=== PATIENT | female | born 1955 | race Caucasian/White ===

== ENCOUNTER 2018-01-23 09:50 | Inpatient (IN) | payer OTHER ==
[~2018-01-23] VITALS: Ht 167.6 cm; Wt 79.4 kg
--- NOTE | 2018-01-23 09:56 | ED DYSPNEA/ASTHMA COMPLAINT ---
History of Present Illness General Chief Complaint: Dyspnea (COPD, CHF, Other) Stated Complaint: SOB, COUGH Source: patient, old records, EMS Exam Limitations: no limitations Vital Signs & Intake/Output Vital Signs & Intake/Output Vital Signs Date Time Temp Pulse Resp B/P B/P Pulse O2 O2 Flow FiO2 Mean Ox Delivery Rate 01/23 1525 98.3 57 18 110/60 91 Nasal 2.0L Cannula 01/23 1522 91 Nasal 2.0L Cannula 01/23 1410 98.5 61 22 104/62 94 Nasal 2.0L Cannula 01/23 1234 98.3 57 20 99/57 92 Nasal 2.0L Cannula 01/23 1111 96 Nasal 2.0L Cannula 01/23 1001 100.1 69 24 125/63 95 Nasal 2.0L Cannula Allergies Coded Allergies: NO KNOWN ALLERGIES (08/13/11) Reconcile Medications Amlodipine Besylate 10 MG TABLET 1 TAB PO DAILY HEART (Reported) Atenolol 25 MG TABLET 1 TAB PO DAILY HEART (Reported) Divalproex Sodium (Divalproex Sodium ER) 500 MG TAB.ER.24H 1 TAB PO QPM MENTAL HEALTH (Reported) Divalproex Sodium (Divalproex Sodium ER) 250 MG TAB.ER.24H 1 TAB PO QPM MENTAL HEALTH (Reported) Duloxetine HCl 60 MG CAPSULE.DR 2 CAP PO DAILY MENTAL HEALTH (Reported) Lamotrigine 200 MG TABLET 1 TAB PO DAILY MENTAL HEALTH (Reported) Levothyroxine Sodium 150 MCG TABLET 1 TAB PO DAILY AC THYROID (Reported) Losartan Potassium 25 MG TABLET 1 TAB PO DAILY HEART (Reported) Oxazepam 10 MG CAPSULE 1 TAB PO TIDPRN PRN MENTAL HEALTH (Reported) Trazodone HCl 100 MG TABLET 2 TAB PO QPM SLEEP (Reported) Triage Nurses Notes Reviewed? yes Onset: Gradual Duration: day(s): Timing: recent history Severity: moderate HPI: 62YO female with hx of COPD, HTN, CAD s/p AMI 2 years ago presents to ED complaining of worsening dyspnea x 6 days. Patient states that her neighbor has been ill with the flu and that everyone around has been getting sick. Patient reports headache, body aches, sore throat, malaise, cough productive of yellow sputum, dyspnea 6 days. Patient also reports right ear pain beginning yesterday. Patient reports vertigo sensation and equilibrium abnormality beginning today, worse with positional changes. Patient reports left-sided anterior chest pain this morning which was pleuritic and worse with cough however currently reports no significant chest pain. Patient denies abdominal pain, vomiting, diarrhea, urinary symptoms. (Lexi Godoy) Past History Travel History Traveled to [place] past 21 day No Medical History Any Pertinent Medical History? see below for history Respiratory: COPD Endocrine: hypothyroidism Surgical History Surgical History: non-contributory Psychosocial History Who do you live with Patient/Self Services at Home None What is your primary language Swiss Family History Hx Contributory? No (Lexi Godoy) Review of Systems Review of Systems Constitutional: Reports: no symptoms. EENTM: Reports: see HPI. Respiratory: Reports: see HPI. Cardiovascular: Reports: see HPI. GI: Reports: no symptoms. Genitourinary: Reports: no symptoms. Musculoskeletal: Reports: see HPI. Skin: Reports: no symptoms. Neurological/Psychological: Reports: see HPI. Hematologic/Endocrine: Reports: no symptoms. Immunologic/Allergic: Reports: no symptoms. All Other Systems: Reviewed and Negative (Lexi Godoy) Physical Exam Physical Exam General Appearance: well developed/nourished, no apparent distress, alert, awake Head: atraumatic, normal appearance Eyes: Bilateral: normal appearance, PERRL, EOMI. 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 Yes CVA/TIA Diagnosis No Sepsis Present: No Sepsis Focused Exam Completed? No (Lexi Godoy) Progress Differential Diagnosis: asthma, AMI, bronchitis, CHF, COPD, pericarditis, pulmonary embolism, pneumonia, pneumothorax, unstable angina Plan of Care: Orders Procedure Date/time Status Nothing by Mouth 01/24 B Active US-LIMITED ABDOMEN 01/24 700 Active CBC WITHOUT DIFFERENTIAL 01/24 600 Active BASIC ELECTROLYTES PLUS BUN&CR 01/24 600 Active Heart Healthy Diet 01/23 D Complete LOWER RESPIRATORY CULTURE 01/23 1538 Active Weight 01/23 1522 Active Teach/Educate 01/23 1522 Active Pain Treatment and Response 01/23 1522 Active Nutritional Intake, Monitor 01/23 1522 Active Isolation 01/23 1522 Active Patient Care Conference 01/23 1522 Active Activity/Ambulation 01/23 1522 Active Pathway - chart 01/23 1334 Active House Staff 01/23 1334 Active Patient Data 01/23 1334 Active Code Status 01/23 1334 Active Patient Data 01/23 1309 Active ED Holding Orders 01/23 1305 Active Admit to inpatient 01/23 1305 Active Vital Signs 01/23 1305 Active Intake & Output 01/23 1305 Active Code Status 01/23 1305 Complete BLOOD CULTURE 01/23 1237 Active THROAT CULTURE W/QUICK STREP 01/23 1006 Active TROPONIN LEVEL 01/23 1006 Complete COMPREHENSIVE METABOLIC PANEL 01/23 1006 Complete CBC WITHOUT DIFFERENTIAL 01/23 1006 Complete EKG 01/23 1006 Active RAPID VIRAL INFLUENZA A 01/23 1002 Complete TRC EVALUATION (GEN) 01/23 UNK Active VTE Mechanical Prophylaxis 01/23 UNK Active Current Medications Sig/Michelle Start time Last Medication Dose Stop Time Status Admin Divalproex Sodium 750 MG QPM 01/24 2200 UNVr (Depakote ER) Amlodipine Besylate 10 MG DAILY 01/24 1000 AC (Norvasc) Atenolol 25 MG DAILY 01/24 1000 AC (Tenormin) Azithromycin 500 MG DAILY 01/24 1000 AC (Zithromax) Dextrose/Water 250 ML (D5W) Duloxetine HCl 120 MG DAILY 01/24 1000 AC (Cymbalta) Lamotrigine 200 MG DAILY 01/24 1000 AC (LaMICtal) Losartan Potassium 25 MG DAILY 01/24 1000 AC (Cozaar) Levothyroxine Sodium 0.15 MG DAILY AC 01/24 0700 AC (Synthroid) Divalproex Sodium 250 MG QPM 01/23 2200 CAN (Depakote ER) Methylprednisolone 40 MG Q8 01/23 2200 AC (Solumedrol) Trazodone HCl 200 MG QPM 01/23 2200 AC (Desyrel) Nicotine 14 MG DAILY 01/23 1538 AC (Nicotine Cq) Oxazepam 10 MG TIDPRN PRN 01/23 1400 AC (Serax 10 MG Capsule) 01/30 1359 Acetaminophen 325 MG Q6 PRN 01/23 1345 AC 01/23 (Tylenol) 1508 Enoxaparin Sodium 40 MG DAILY 01/23 1333 AC (Lovenox) Laboratory Tests 01/23/18 1025: Anion Gap 10, Estimated GFR > 60, BUN/Creatinine Ratio 15.7, Glucose 101 H, Calcium 8.9, Total Bilirubin 0.7, AST 53 H, ALT 66 H, Alkaline Phosphatase 257 H, Troponin I < 0.01, Total Protein 7.1, Albumin 4.0, Globulin 3.1, Albumin/ Globulin Ratio 1.3, CBC w Diff NO MAN DIFF REQ, RBC 4.57, MCV 88.4, MCH 29.1, MCHC 32.9 L, RDW 14.1, MPV 7.4, Gran % 73.9, Lymphocytes % 13.9 L, Monocytes % 11.9 H, Eosinophils % 0.1, Basophils % 0.2, Absolute Granulocytes 4.1, Absolute Lymphocytes 0.8 L, Absolute Monocytes 0.7 H, Absolute Eosinophils 0, Absolute Basophils 0 Microbiology 01/23 1538 LOWER RESP: Respiratory Culture - COLB 01/23 1538 LOWER RESP: Gram Stain - COLB 01/23 1240 BLOOD: Blood Culture - RECD 01/23 1237 BLOOD: Blood Culture - ORD 01/23 1005 NASOPHARYN: Influenza Virus A & B Rapid Smear - COMP Patient's EKG is stable, sinus rhythm. Patient's blood work Shows mildly elevated liver enzymes, prior labs show previous elevation in these enzymes. Patient has hypoxia at rest and with ambulation, O2 saturation dropping to 86% while ambulating without O2. This patient is not dependent on O2 at home. She require supplemental oxygen, IV steroids. Has low-grade fever, likely requires IV antibiotics for her COPD exacerbation. Patient discussed with hospitalist Dr. Perez, admitted to general medicine for COPD exacerbation. Patient will likely also require pulmonology consult. Case management agrees with full admission. Diagnostic Imaging: Viewed by Me: Radiology Read. Discussed w/RAD: Radiology Read. CXR Impression: PATIENT: NOHEMY SCHMITZ PRESENT AGE : 62 PATIENT ACCOUNT NO: [id number] : 54 LOCATION: [facility] ORDERING PHYSICIAN: Lexi OLIVEROS SERVICE DATE: 01/23/18 EXAM TYPE: RAD - XRY-CHEST XRAY, TWO VIEWS EXAMINATION: XR CHEST CLINICAL INFORMATION: Cough and dyspnea. COMPARISON: 08/15/2011 TECHNIQUE: 2 views of the chest were obtained. FINDINGS: Lungs appear slightly hyperexpanded. In addition, bronchial negron appear thickened in the perihilar regions. Query if there is history of asthma or bronchitis. No pulmonary consolidation, focal interstitial infiltrate or pleural effusion. Cardiac silhouette is normal in size. The hilar contours are normal. Bone density appears diffusely decreased. No acute skeletal findings. IMPRESSION: Findings suggest possibility of chronic obstructive pulmonary disease. The bronchial negron appear thickened in the perihilar regions. This could reflect presence of bronchitis or asthma. No pneumonia. DICTATED BY: Dusty Miranda MD DATE/TIME DICTATED:01/23/181204 [employer]AIL SALES LEAD:DEDE DATE/TIME TRANSCRIBED:01/23/181204 CONFIDENTIAL, DO NOT COPY WITHOUT APPROPRIATE AUTHORIZATION. <Electronically signed in Other Vendor System> SIGNED BY: Dusty Miranda MD 01/23/18 1211 Initial ED EKG: sinus rhythm @57bpm, nonspecific ST changes Prior EKG: unchanged (12/29/11) (Sosa OLIVEROS,Lexi Vasques) Departure Departure Disposition: STILL A PATIENT Condition: Stable Clinical Impression Primary Impression: COPD exacerbation Secondary Impressions: Dyspnea Qualifiers: Dyspnea type: dyspnea on exertion Qualified Code: R06.09 - Other forms of dyspnea Hypoxia Referrals: Derrick Downing MD (PCP/Family) Departure Forms: Customer Survey General Discharge Information Admission Note Spoke With: Manuel Perez MD Documentation of Exam: Documentation of any treatments & extenuating circumstances including Concerns Regarding Discharge (functional status, medication knowledge or non-compliance, living conditions, etc.) that warrant an admission rather than observation: [ COPD exacerbation and hypoxia requiring supplemental oxygen, respiratory therapy treatment, IV steroids, IV antibiotics, possible pulmonology consult, premature discharge medically unsafe.] (Lexi Godoy) PA/CERTIFICATION OFFICER Co-Sign Statement Statement: ED Attending supervision documentation- [X] I saw and evaluated the patient. I have also reviewed all the pertinent lab results and diagnostic results. I agree with the findings and the plan of care as documented in the PA's/CERTIFICATION OFFICER's documentation. [X] I have reviewed the ED Record and agree with the PA's/CERTIFICATION OFFICER's documentation. [] Additions or exceptions (if any) to the PAs/CERTIFICATION OFFICER's note and plan are summarized below: [Patient to be admitted for COPD exacerbation, IV steroids, IV antibiotics, pulmonary consultation, nebulizers] (Jasmin ARMENTA,Jonel Lynch) Critical Care Note Critical Care Note Critical Care Time: non-applicable (Sosa OLIVEROS,Lexi Vasques)
[2018-01-23 10:36] LABS: ABSOLUTE BASOPHIL COUNT 0 /CUMM (0.0-0.2); ABSOLUTE EOSINOPHIL COUNT 0 /CUMM (0.0-0.7); ABSOLUTE GRANULOCYTE CT 4.1 /CUMM (1.4-6.5); ABSOLUTE LYMPH COUNT 0.8 /CUMM (1.2-3.4); ABSOLUTE MONOCYTE COUNT 0.7 /CUMM (0.10-0.60); BASOPHIL % 0.2 % (0.0-2.0); EOSINOPHIL % 0.1 % (0-5); GRANULOCYTE % 73.9 % (42.2-75.2); HEMATOCRIT 40.4 % (37-47); MEAN CORPUSCULAR HGB 29.1 PG (27.0-31.0); MEAN CORPUSCULAR HGB CONC 32.9 G/DL (33.0-37.0); MEAN CORPUSCULAR VOLUME 88.4 FL (81.0-99.0); MEAN PLATELET VOLUME 7.4 FL (7.4-10.4); PLATELET COUNT 281 /CUMM (130-400); RBC DISTRIBUTION WIDTH 14.1 % (11.5-14.5); RED BLOOD CELL CT 4.57 /CUMM (4.20-5.40); WHITE BLOOD CELL COUNT 5.5 /CUMM (4.8-10.8)
[2018-01-23] MEDS ORDERED: ATENOLOL25 M1 PO (11:47)
[2018-01-23] MEDS ORDERED: TRAZODONE HCL100 M1 PO (11:47)
[2018-01-23] MEDS ORDERED: DIVALPROEX SOD500 M3 PO (11:48)
[2018-01-23] MEDS ORDERED: LAMOTRIGINE200 M2 PO (11:48)
[2018-01-23] MEDS ORDERED: OXAZEPAM10 M1 PO (11:49)
[2018-01-23] MEDS ORDERED: LEVOTHYROXINE150 MCG PO (11:50)
[2018-01-23] MEDS ORDERED: DULOXETINE HCL60 MG PO (11:51)
[2018-01-23] MEDS ORDERED: AMLODIPINE BESY10 M1 PO (11:53)
[2018-01-23] MEDS ORDERED: LOSARTAN POTASS25 M1 PO (11:54)
[2018-01-23] MEDS ORDERED: DIVALPROEX SOD250 M3 PO (11:54)
--- NOTE | 2018-01-23 12:11 | RADIOLOGY REPORT ---
EXAMINATION: XR CHEST CLINICAL INFORMATION: Cough and dyspnea. COMPARISON: 08/15/2011 TECHNIQUE: 2 views of the chest were obtained. FINDINGS: Lungs appear slightly hyperexpanded. In addition, bronchial negron appear thickened in the perihilar regions. Query if there is history of asthma or bronchitis. No pulmonary consolidation, focal interstitial infiltrate or pleural effusion. Cardiac silhouette is normal in size. The hilar contours are normal. Bone density appears diffusely decreased. No acute skeletal findings. IMPRESSION: Findings suggest possibility of chronic obstructive pulmonary disease. The bronchial negron appear thickened in the perihilar regions. This could reflect presence of bronchitis or asthma. No pneumonia.
--- NOTE | 2018-01-23 13:23 | History & Physical ---
Grzegorz Macdonald 01/23/18 1322: General Information and HPI History of Present Illness: Ms. Agustin is a 55-year-old female with a past medical history significant for nicotine dependence (6-8 cig/day x > 40 yrs), COPD, bipolar disorder, hypertension, bronchitis, chronic transaminitis and hypothyroidism with cough and SOB since Saturday evening. Patient reports she has been feeling a generalized weak accompanied by chills which she attributed to the flu. She also reports myalgias, a cough with yellowish sputum production and a right ear ache that also began Saturday. She reports a bilateral dull musculoskeletal pain. She reports she received her flu vaccination 06/2017. She denies JONES, fever, nausea, vomiting, abdominal pain, lower extremity swelling, urinary or bowel symptoms. Allergies/Medications Allergies: Coded Allergies: NO KNOWN ALLERGIES (08/13/11) Home Med list Amlodipine Besylate 10 MG TABLET 1 TAB PO DAILY HEART (Reported) Atenolol 25 MG TABLET 1 TAB PO DAILY HEART (Reported) Divalproex Sodium (Divalproex Sodium ER) 500 MG TAB.ER.24H 1 TAB PO QPM MENTAL HEALTH (Reported) Divalproex Sodium (Divalproex Sodium ER) 250 MG TAB.ER.24H 1 TAB PO QPM MENTAL HEALTH (Reported) Duloxetine HCl 60 MG CAPSULE.DR 2 CAP PO DAILY MENTAL HEALTH (Reported) Lamotrigine 200 MG TABLET 1 TAB PO DAILY MENTAL HEALTH (Reported) Levothyroxine Sodium 150 MCG TABLET 1 TAB PO DAILY AC THYROID (Reported) Losartan Potassium 25 MG TABLET 1 TAB PO DAILY HEART (Reported) Oxazepam 10 MG CAPSULE 1 TAB PO TIDPRN PRN MENTAL HEALTH (Reported) Trazodone HCl 100 MG TABLET 2 TAB PO QPM SLEEP (Reported) Past History Travel History Traveled to [place] past 21 day No Medical History Neurological: vertigo EENT: NONE Cardiovascular: hypertension Respiratory: COPD Gastrointestinal: NONE Hepatic: NONE Renal: NONE Musculoskeletal: CHRONIC BACK PAIN Psychiatric: bipolar disease Endocrine: NONE Surgical History Surgical History: non-contributory Past Family/Social History Psychosocial History Services at Home: None Review of Systems Review of Systems Constitutional: Reports: see HPI. Exam & Diagnostic Data Last 24 Hrs of Vital Signs/I&O Vital Signs Date Time Temp Pulse Resp B/P B/P Pulse O2 O2 Flow FiO2 Mean Ox Delivery Rate 01/23 1234 98.3 57 20 99/57 92 Nasal 2.0L Cannula 01/23 1111 96 Nasal 2.0L Cannula 01/23 1001 100.1 69 24 125/63 95 Nasal 2.0L Cannula Intake & Output 01/23 1600 04 0800 04 0000 Intake Total Output Total Balance Patient 145 lb Weight Physical Exam General Appearance Alert, Oriented X3, Cooperative, No Acute Distress Cardiovascular Regular Rate, Normal S1, Normal S2, No Murmurs Lungs Bilateral wheezing Abdomen Normal Bowel Sounds, Soft, No Tenderness Extremities No Edema Last 24 Hrs of Labs/Piero: Laboratory Tests 01/23/18 1025: Anion Gap 10, Estimated GFR > 60, BUN/Creatinine Ratio 15.7, Glucose 101 H, Calcium 8.9, Total Bilirubin 0.7, AST 53 H, ALT 66 H, Alkaline Phosphatase 257 H, Troponin I < 0.01, Total Protein 7.1, Albumin 4.0, Globulin 3.1, Albumin/ Globulin Ratio 1.3, CBC w Diff NO MAN DIFF REQ, RBC 4.57, MCV 88.4, MCH 29.1, MCHC 32.9 L, RDW 14.1, MPV 7.4, Gran % 73.9, Lymphocytes % 13.9 L, Monocytes % 11.9 H, Eosinophils % 0.1, Basophils % 0.2, Absolute Granulocytes 4.1, Absolute Lymphocytes 0.8 L, Absolute Monocytes 0.7 H, Absolute Eosinophils 0, Absolute Basophils 0 Microbiology 01/23 1237 BLOOD: Blood Culture - ORD 01/23 1237 BLOOD: Blood Culture - ORD 01/23 1005 NASOPHARYN: Influenza Virus A & B Rapid Smear - COMP Diagnostic Data CXR Results FINDINGS: Lungs appear slightly hyperexpanded. In addition, bronchial negron appear thickened in the perihilar regions. Query if there is history of asthma or bronchitis. No pulmonary consolidation, focal interstitial infiltrate or pleural effusion. Cardiac silhouette is normal in size. The hilar contours are normal. Bone density appears diffusely decreased. No acute skeletal findings. IMPRESSION: Findings suggest possibility of chronic obstructive pulmonary disease. The bronchial negron appear thickened in the perihilar regions. This could reflect presence of bronchitis or asthma. No pneumonia. Assessment/Plan Assessment: Ms. Agustin is a 55-year-old female with a past medical history significant for nicotine dependence (6-8 cig/day x > 40 yrs), bipolar disorder, hypertension, bronchitis, chronic transaminitis and hypothyroidism with cough and SOB since Saturday evening. Problem list: COPD exacerbation Chronic transaminitis secondary to antipsychotic medication use Plan: Admit to general medical floor for further evaluation and management TRC/nebs when necessary Oxygen supplementation, maintain O2 > 92% Start IV methylprednisolone every 8 hours Watch off antibiotics Continue home meds Abdominal ultrasound Smoke cessation counseling Pulm consult if respiratory symptoms worsen Diet: Heart healthy DVT prophylaxis: sc Enoxaparin Code: Full As Ranked By This Provider Problem List: 1. COPD exacerbation 2. Bronchitis Core Measures/Misc (07/07) Acute Coronary Syndrome ACS Diagnosis: No Congestive Heart Failure Congestive Heart Failure Diagnosis No Cerebrovascular Accident CVA/TIA Diagnosis: No VTE (View Protocol) VTE Risk Factors Age>40 No Mechanical VTE Prophylaxis d/t N/A MechProphylax Ordered No VTE Pharm Prophylaxis d/t NA PharmProphylax ordered Sepsis (View protocol) Sepsis Present: No Av Romero 01/23/18 1520: Resident Review Statement Resident Statement: examined this patient, discussed with analytics intern Other Findings: Patient is a 62-year-old female with past medical history of COPD not on home oxygen, CADs/p [place] 2 years ago, bipolar disorder, hypertension, bronchitis, hypothyroidism who presented to the ED with a chief complaint of worsening dyspnea and fatigue for the last 1 week. Patient reports that she has been sick for the past 1 week feeling lousy, tired, with worsening shortness of breath and scanty mucoid sputum. Her neighbor has been down with flu and there has been other sick contacts. Patient received a flu shot in June last year. She denies fevers at home but had a temp of 100.1 in the ED. She reports chills and dizziness but denies any palpitations, nausea, vomiting, headaches, rash, diarrhea or constipation. She does report some nonradiating chest pain that started this morning and has been worsening with her cough. Patient is a current smoker and smokes 6-8 cigarettes per day for the last 40 years. She follows up with the business dean in [place] and has been diagnosed COPD. She is on inhalers for her COPD. In the ED her temperature was 100.1, pulse 69, respiration 24, blood pressure 125/63 and saturating 95% on 2 L nasal cannula. Labs were significant for a sodium of 130, elevated LFTs(AST 53, ALT 66, alkaline phosphatase 257-chronic). Flu test was negative Chest x-ray showed thickening of bronchial negron in the perihilar region suggesting bronchitis. No infiltrate to suggest pneumonia. Findings of COPD. Physical exam General: Awake, alert, oriented, mild distress HEENT: PERRLA, nasal cannula CVS: S1-S2, no murmurs Chest: Diminished breath sounds at bases, occasional rhonchi Assessment Acute hypoxic respiratory failure secondary to COPD exacerbation and bronchitis -The patient to [facility] -Maintain oxygen saturations above 92% -[facility] nebs [id number] -Flu has been negative -Blood and sputum cultures -Solu-Medrol 40 every 8 hours -Continue azithromycin for anti-inflammatory effects -Pulm consult in a.m. if no improvement in symptoms -Smoking physician counseling Smoker:Smokes 6-8 cigarettes for the last 40 years. Not interested to quit at this admission -Nicotine patches -Smoking cessation counseling Transaminitis chronic. Likely secondary to antipsychotic medications. Hepatitis panel has been negative in the past. -We will get right upper quadrant ultrasound -Monitor closely. Hyponatremia -Check BEp in am Bipolar disorder - continue Lamictal and Depakote Hypertension -Continue atenolol on Norvasc DVT prophylaxis subcutaneous Lovenox Full code Ana ARMENTA,Manuel 01/23/18 1551: Attending MD Review Statement Attending Statement Attending MD Statement: examined this patient, discuss w/resident/PA/VULCANIZER, agreed w/resident/PA/VULCANIZER, reviewed EMR data (avail), discussed with nursing, discussed with case mgmt, amended to note Attending Assessment/Plan: Patient is a pleasant 62-year-old female with history of COPD who presents with progressive worsening of shortness of breath and cough. He arrived emergency room afebrile and hemodynamically stable. Chest x-ray shows no evidence of infectious process. On examination she was found to be wheezing bilaterally and was referred to the inpatient medical service for admission. She is currently lying comfortably in bed not in any acute distress. She reports compliance with her COPD regimen at home. She is on short-acting bronchodilators and Symbicort. She reports been in fairly good health and denies any hospitalizations for COPD within the past she does admit to episodes of exacerbation on and off. She is requiring oxygen supplementation as she was reported to be saturating in the 80s on room air when she presented. She is not normally on home oxygen. On examination she has diffuse rhonchi. She has no use of accessory muscles. She has no jugular venous distention. She has no peripheral edema. Problems: 1. Acute hypoxic respiratory failure. 2. COPD exacerbation 3. Hypertension 4. Bipolar disorder 5. Chronically elevated LFTs. Plan: -Admit to inpatient General medical service. -Bronchodilator therapy with albuterol/Atrovent. Systemic steroid therapy with IV Solu-Medrol 40 mg every 8 hours. Continue oxygen supplementation and wean off as tolerated. Check ambulatory pulse oximetry at the time of discharge. -Continue home antihypertensive regimen. -Continue her Home regimen for her bipolar disorder. -Patient reports that she is aware of her chronically elevated LFTs. She reports that this is secondary to the medication she takes for bipolar disorder. She reports that her primary care provider obtained liver sonogram about a month ago. Please obtain results for evaluation. Laboratory data here shows that her LFTs have been elevated since 2010. Viral hepatitis panel was negative at that time. -DVT prophylaxis with heparin subcu.
[2018-01-23 15:25] VITALS: BP 110/60
--- NOTE | 2018-01-23 15:51 | Admission Certification ---
Admission Certification Certification Statement - As attending physician, I certify that at the time of - admission, based on clinical presentation, severity of - symptoms, need for further diagnostic testing and - therapeutic interventions, and risk of adverse outcomes - without in-hospital treatment, in my clinical assessment, - this patient requires an acute hospital stay for a minimum - of two nights or longer. I have also considered psychsocial - factors such as support system, advanced age, financial - issues, cognitive issues, and failed out-patient treatments, - past re-admission history, safety of patient, and lack of - compliance as applicable. Specific rationale supporting this admission is: Patient will require hospitalization for management of her COPD exacerbation. She will require intravenous chemotherapy.
[2018-01-23 21:58] VITALS: BP 110/64
[2018-01-24 06:56] VITALS: BP 136/64
--- NOTE | 2018-01-24 07:39 | PN- Housestaff ---
Grzegorz Macdonald 01/24/18 0739: Subjective Follow-up For: COPD exacerbation Chronic transaminitis secondary to antipsychotic medication use Subjective: Patient reports ear ache not relieved with tylenol. 05/30 in severity Review of Systems Constitutional: Reports: see HPI. Objective Last 24 Hrs of Vital Signs/I&O Vital Signs Date Time Temp Pulse Resp B/P B/P Pulse O2 O2 Flow FiO2 Mean Ox Delivery Rate 01/24 0810 92 Nasal 2.0L Cannula 01/24 0656 97.7 53 20 136/64 91 Nasal 2.0L Cannula 01/23 2158 98.2 54 20 110/64 92 Nasal 2.0L Cannula 01/23 1748 Nasal 2.0L Cannula 01/23 1525 98.3 57 18 110/60 91 Nasal 2.0L Cannula 01/23 1522 91 Nasal 2.0L Cannula 01/23 1410 98.5 61 22 104/62 94 Nasal 2.0L Cannula 01/23 1234 98.3 57 20 99/57 92 Nasal 2.0L Cannula 01/23 1111 96 Nasal 2.0L Cannula 01/23 1001 100.1 69 24 125/63 95 Nasal 2.0L Cannula Intake & Output 01/24 1600 01/24 0800 04 0000 Intake Total 240 Output Total 100 Balance 140 Intake, Oral 240 Output, Urine 100 Physical Exam General Appearance: Alert, Oriented X3, Cooperative, on 2LNC HEENT: No drainage or erythema visualized in BL ear Cardiovascular: Regular Rate, Normal S1, Normal S2 Lungs: Mild bilateral wheezing Abdomen: Normal Bowel Sounds, Soft, No Tenderness Current Medications: Current Medications Sig/Michelle Start time Last Medication Dose Route Stop Time Status Admin Acetaminophen 325 MG Q6 PRN 01/23 1345 AC 01/23 PO 2134 Albuterol Sulfate 3 ML EVERY 4 HRS/AWAKE 01/23 2000 AC 01/24 INH 0808 Albuterol Sulfate 3 ML ONCE ONE 01/23 1015 DC 01/23 INH 01/23 1016 1111 Amlodipine Besylate 10 MG DAILY 01/24 1000 AC PO Atenolol 25 MG DAILY 01/24 1000 AC PO Azithromycin 500 MG DAILY 01/24 1000 AC Dextrose/Water 250 ML IV Azithromycin 500 MG ONCE ONE 01/23 1245 DC 01/23 Dextrose/Water 250 ML IV 01/23 1344 1321 Ceftriaxone Sodium 0 .STK-MED ONE 01/23 1258 DC .ROUTE Ceftriaxone Sodium 1,000 MG ONCE ONE 01/23 1245 DC 04/05 IV 01/23 1246 1321 Divalproex Sodium 750 MG QPM 01/24 2200 AC PO Divalproex Sodium 500 MG DAILY 01/24 1000 DC PO Divalproex Sodium 250 MG QPM 01/23 2200 CAN PO Duloxetine HCl 120 MG DAILY 01/24 1000 AC PO Enoxaparin Sodium 40 MG DAILY 01/23 1333 AC SC Ipratropium [place] 2.5 ML EVERY 4 HRS/AWAKE 01/23 2000 AC 01/24 INH 0808 Ipratropium [place] 2.5 ML ONCE ONE 01/23 1015 DC 04 INH 01/23 1016 1111 Lamotrigine 200 MG DAILY 01/24 1000 AC PO Levothyroxine Sodium 0.15 MG DAILY AC 01/24 0700 AC 01/24 PO 0618 Losartan Potassium 25 MG DAILY 01/24 1000 AC PO Meclizine HCl 25 MG ONCE ONE 01/23 1015 DC PO 01/23 1016 Methylprednisolone 40 MG Q8 01/23 2200 AC 01/24 IV 0617 Methylprednisolone 0 .STK-MED ONE 01/23 1258 DC .ROUTE Methylprednisolone 125 MG ONCE ONE 01/23 1245 DC /05 IV 01/23 1246 1321 Nicotine 14 MG DAILY 01/23 1538 AC 01/23 TOP 1808 Oxazepam 10 MG TIDPRN PRN 01/23 1400 AC PO 01/30 1359 Sodium Chloride 1,000 ML BOLUS ONE 01/23 1245 DC 04/05 IV 01/23 1444 1321 Trazodone HCl 200 MG QPM 01/23 2200 AC 01/23 PO 2132 Last 24 Hrs of Lab/Piero Results Last 24 Hrs of Labs/Mics: Laboratory Tests 01/24/18 0758: Sodium Pending, Potassium Pending, Chloride Pending, Carbon Dioxide Pending, Anion Gap Pending, BUN Pending, Creatinine Pending, BUN/Creatinine Ratio Pending , CBC w Diff Pending, WBC Pending, RBC Pending, Hgb Pending, Hct Pending, MCV Pending, MCH Pending, MCHC Pending, RDW Pending, Plt Count Pending, MPV Pending 01/23/18 1025: Anion Gap 10, Estimated GFR > 60, BUN/Creatinine Ratio 15.7, Glucose 101 H, Calcium 8.9, Total Bilirubin 0.7, AST 53 H, ALT 66 H, Alkaline Phosphatase 257 H, Troponin I < 0.01, Total Protein 7.1, Albumin 4.0, Globulin 3.1, Albumin/ Globulin Ratio 1.3, CBC w Diff NO MAN DIFF REQ, RBC 4.57, MCV 88.4, MCH 29.1, MCHC 32.9 L, RDW 14.1, MPV 7.4, Gran % 73.9, Lymphocytes % 13.9 L, Monocytes % 11.9 H, Eosinophils % 0.1, Basophils % 0.2, Absolute Granulocytes 4.1, Absolute Lymphocytes 0.8 L, Absolute Monocytes 0.7 H, Absolute Eosinophils 0, Absolute Basophils 0 01/23/18 1002: Virus Culture Pending Microbiology 01/23 1538 LOWER RESP: Respiratory Culture - COLB 01/23 153 LOWER RESP: Gram Stain - COLB 01/23 1240 BLOOD: Blood Culture - RECD 01/23 1237 BLOOD: Blood Culture - CAN Cancelled: SPECIMEN NEVER RECEIVED. REORDER IF NEEDED 01/23 1005 NASOPHARYN: Influenza Virus A & B Rapid Smear - COMP Assessment/Plan Assessment: Ms. Agustin is a 55-year-old female with a past medical history significant for nicotine dependence (6-8 cig/day x > 40 yrs), bipolar disorder, hypertension, bronchitis, chronic transaminitis and hypothyroidism with cough and SOB since Saturday evening. Problem list: COPD exacerbation Chronic transaminitis secondary to mental health medication use Plan: Continue IV Azithromycin TRC/nebs when necessary Oxygen supplementation, maintain O2 > 92% Continue IV methylprednisolone every 8 hours Watch off antibiotics Continue home meds Await abdominal ultrasound report from [place] - faxed 01/24 Smoke cessation counseling Pulm consult if respiratory symptoms worsen Diet: Heart healthy DVT prophylaxis: sc Enoxaparin Code: Full Problem List: 1. COPD exacerbation 2. Bronchitis Pain Ratin Pain Location: R inner ear Pain Goal: Pain 4 or less Pain Plan: Percocet Tomorrow's Labs & Rationales: none Manuel Perez MD 01/24/18 1400: Attending MD Review Statement Attending Statement Attending MD Statement: examined this patient, discuss w/resident/PA/[employer], agreed w/resident/PA/[employer], reviewed EMR data (avail), discussed with nursing, discussed with case mgmt, amended to note Attending Assessment/Plan: Patient seen and examined. Resting comfortably and not in any acute distress. Reports feeling better compared to presentation. However she continues to complain of a productive cough. Continues complain of mild ear discomfort. Examination of the ear without arthroscope did not reveal any acute pathology. On examination today she has diminished breath sounds bilaterally with mild expiratory rhonchi. She has no clinical evidence of volume overload. Problems: 1. Acute hypoxic respiratory failure. 2. COPD exacerbation 3. Hypertension 4. Bipolar disorder 5. Chronically elevated LFTs. Plan: -Continue bronchodilator therapy. Wean down Solu-Medrol to every 12 hours starting tomorrow. -Wean off oxygen therapy. -Mobilize patient. -Add mucolytic therapy with Mucinex. 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 -Follow-up results of her recently done right upper quadrant sonogram from her primary care provider
[2018-01-24 09:01] LABS: HEMATOCRIT 37.5 % (37-47); MEAN CORPUSCULAR HGB 29.6 PG (27.0-31.0); MEAN CORPUSCULAR HGB CONC 33.5 G/DL (33.0-37.0); MEAN CORPUSCULAR VOLUME 88.4 FL (81.0-99.0); PLATELET COUNT 202 /CUMM (130-400); RBC DISTRIBUTION WIDTH 13.8 % (11.5-14.5); RED BLOOD CELL CT 4.25 /CUMM (4.20-5.40); WHITE BLOOD CELL COUNT 5.6 /CUMM (4.8-10.8)
[2018-01-24 14:09] VITALS: BP 100/52
[2018-01-24] MEDS ORDERED: PERCOCET 5-3251 EACH PO (15:51)
[2018-01-24] MEDS ORDERED: PREDNISONE10 M2 PO (15:51)
[2018-01-24] MEDS ORDERED: AZITHROMYCIN500 M3 PO (15:51)
--- NOTE | 2018-01-24 15:52 | Patient Discharge Instructions ---
Discharge Instructions General Discharge Information You were seen/treated for: Copd excerbation Earache You had these procedures: none Special Instructions: Follow up with your PCP within 1 week of discharge Diet Continue normal diet: Yes Activity Full Activity/No Limits: Yes Acute Coronary Syndrome Inclusion Criteria At DC or during hospital stay patient has or had the following: ACS DIAGNOSIS No Discharge Core Measures Meds if any: Prescribed or Continued at Discharge Meds if any: NOT Prescribed or Continued at Discharge Congestive Heart Failure Inclusion Criteria At DC or during hospital stay patient has or had the following: CHF DIAGNOSIS No Discharge Core Measures Meds if any: Prescribed or Continued at Discharge Meds if any: NOT Prescribed or Continued at Discharge Cerebrovascular accident Inclusion Criteria At DC or during hospital stay patient has or had the following: CVA/TIA Diagnosis No Discharge Core Measures Meds if any: Prescribed or Continued at Discharge Meds if any: NOT Prescribed or Continued at Discharge Venous thromboembolism Inclusion Criteria VTE Diagnosis No VTE Type NONE VTE Confirmed by (Test) NONE Discharge Core Measures - Per Current guidelines, there needs to be overlap - treatment for the first 5 days of Warfarin therapy. - If discharged on Warfarin prior to 5 days of - overlap therapy, the patient will need to be - assessed for post discharge needs including - *Post discharge parental anticoagulation - *Warfarin and/or parental anticoagulation education - *Follow up date to check INR post discharge At least 5 days overlap therapy as Inpatient No Meds if any: Prescribed or Continued at Discharge Note: Overlap Therapy is Warfarin and Anticoagulant Meds if any: NOT Prescribed or Continued at Discharge
[2018-01-24 22:27] VITALS: BP 118/60
[2018-01-25 06:52] VITALS: BP 136/78
--- NOTE | 2018-01-25 10:08 | PN- Housestaff ---
See Addendum Subjective Follow-up For: COPD exacerbation Subjective: Seen and examined. Resting comfortably. Wants to be discharged home. On ambulation her oxygen saturation dropped to 88% on 2 L. Later she was at 84% on room air Patient explained that she'll benefit from another day of hospitalization will check ambulation decreased sats is tomorrow as well. Will try to wean down oxygen requirements. Review of Systems Constitutional: Reports: see HPI. Objective Last 24 Hrs of Vital Signs/I&O Vital Signs Date Time Temp Pulse Resp B/P B/P Pulse O2 O2 Flow FiO2 Mean Ox Delivery Rate 01/25 1447 97.6 66 20 132/60 93 01/25 1143 92 Nasal 2.0L Cannula 01/25 0800 94 Nasal 2.0L Cannula 01/25 0744 136/78 01/25 0744 136/78 01/25 0744 136/78 01/25 0652 97.9 60 18 136/78 95 Nasal 2.0L Cannula 01/25 0000 92 Nasal 2.0L Cannula 01/24 2227 97.9 64 20 118/60 92 01/24 1740 89 Nasal 2.0L Cannula 01/24 1600 92 Nasal 2.0L Cannula Intake & Output 01/25 1600 01/25 0800 01/25 0000 Intake Total 450 50 400 Output Total 400 Balance 50 50 400 Intake, IV 250 Intake, Oral 200 50 400 Output, Urine 400 Physical Exam General Appearance: Alert, Oriented X3 Neck: Supple Cardiovascular: Normal S1, Normal S2 Lungs: WHEEZES MILD Neurological: Normal Speech Current Medications: Current Medications Sig/Michelle Start time Last Medication Dose Route Stop Time Status Admin Acetaminophen 325 MG Q6 PRN 01/23 1345 AC 01/23 PO 2134 Albuterol Sulfate 3 ML EVERY 4 HRS/AWAKE 01/24 2000 AC 01/25 INH 1141 Amlodipine Besylate 10 MG DAILY 01/24 1000 AC 01/25 PO 0744 Atenolol 25 MG DAILY 01/24 1000 AC 01/25 PO 07 Azithromycin 500 MG DAILY 01/24 1000 AC 01/25 Dextrose/Water 250 ML IV 07 Divalproex Sodium 750 MG QPM 01/24 2200 AC 04/ PO 2114 Duloxetine HCl 120 MG DAILY 01/24 1000 AC 01/25 PO 0744 Enoxaparin Sodium 40 MG DAILY 01/23 1333 AC SC Guaifenesin 10 ML Q4P PRN 01/24 1500 AC 01/25 PO 0801 Ipratropium [place] 2.5 ML EVERY 4 HRS/AWAKE 01/23 2000 AC 01/25 INH 1142 Lamotrigine 200 MG DAILY 01/24 1000 AC 01/25 PO 0743 Levothyroxine Sodium 0.15 MG DAILY AC 01/24 0700 AC 01/25 PO 0708 Losartan Potassium 25 MG DAILY 01/24 1000 AC 01/25 PO 0744 Methylprednisolone 40 MG Q12 01/25 1000 AC 01/25 IV 0744 Methylprednisolone 40 MG Q8 01/23 2200 DC 01/25 IV 01/25 0600 0527 Nicotine 14 MG DAILY 01/23 1538 AC 01/25 TOP 0744 Oxazepam 10 MG TIDPRN PRN 01/23 1400 AC 01/24 PO 01/30 1359 2120 Oxycodone/ 1 TAB Q6-PRN PRN 01/24 1045 AC 01/25 Acetaminophen PO 1429 Trazodone HCl 200 MG QPM 01/23 2200 AC 01/24 PO 2114 Assessment/Plan Assessment: Ms. Agustin is a 55-year-old female with a past medical history significant for nicotine dependence (6-8 cig/day x > 40 yrs), bipolar disorder, hypertension, bronchitis, chronic transaminitis and hypothyroidism with cough and SOB since Saturday evening. Problem list: COPD exacerbation Chronic transaminitis secondary to mental health medication use Plan: Continue IV Azithromycin TRC/nebs when necessary Oxygen supplementation, maintain O2 > 92% Continue IV methylprednisolone every 12 hours, steroid taper will follow Watch off antibiotics Continue home meds Await abdominal ultrasound report from [facility] 01/24 Smoke cessation counseling Pulm consult if respiratory symptoms worsen Diet: Heart healthy DVT prophylaxis: sc Enoxaparin Code: Full Problem List: 1. COPD exacerbation Pain Ratin Pain Location: N/A Pain Goal: Pain 4 or less Pain Plan: PRN Tomorrow's Labs & Rationales: BEP
[2018-01-25 14:47] VITALS: BP 132/60
[2018-01-25 22:08] VITALS: BP 140/64
[2018-01-26 06:33] VITALS: BP 154/68
[2018-01-26 07:25] VITALS: BP 154/68
[2018-01-26] MEDS ORDERED: PREDNISONE10 M2 PO ×2 (10:40→11:10)
[2018-01-26] MEDS ORDERED: AZITHROMYCIN500 M3 PO ×3 (10:40→11:12)
[2018-01-26] MEDS ORDERED: PERCOCET 5-3251 EACH PO ×2 (11:10→14:44)
--- NOTE | 2018-01-26 11:23 | PN- Housestaff ---
See Addendum Subjective Follow-up For: COPD exacerbation Chronic transaminitis secondary to antipsychotic medication use Complaints: no complaints Subjective: Seen and examined. Resting comfortably. Wants to be discharged home. On ambulation her oxygen saturation dropped to 88% on 2 L. Will be discharged on home oxygen Review of Systems Constitutional: Reports: no symptoms. Objective Last 24 Hrs of Vital Signs/I&O Vital Signs Date Time Temp Pulse Resp B/P B/P Pulse O2 O2 Flow FiO2 Mean Ox Delivery Rate 01/27 0830 93 Nasal 2.0L Cannula 01/26 08 94 Nasal 2.0L Cannula 01/26 0725 154/68 01/26 0724 154/68 01/26 0724 154/68 01/26 0633 97.4 60 20 154/68 94 Nasal Cannula 01/26 0000 91 Nasal 2.5L Cannula 01/25 2208 98.4 61 20 140/64 90 Nasal Cannula 01/25 2044 92 Nasal 3.0L Cannula 01/25 1630 88 Nasal 2.0L Cannula 01/25 1600 94 Nasal 2.0L Cannula 01/25 1447 97.6 66 20 132/60 93 01/25 1143 92 Nasal 2.0L Cannula Intake & Output 01/26 1600 01/26 0800 01/26 0000 Intake Total 800 Output Total Balance 800 Intake, Oral 800 Physical Exam General Appearance: Alert, Oriented X3, Cooperative, No Acute Distress Skin: No Rashes Skin Temp/Moisture Exam: Warm/Dry Sepsis Skin Exam (color): Normal for Ethnicity HEENT: Atraumatic, PERRLA, EOMI Neck: Supple, No thryomegaly Lymphatic: Cervical nl Cardiovascular: Regular Rate, Normal S1, Normal S2, No Murmurs Lungs: Clear to Auscultation, no wheezing, diminished air entry at bases Abdomen: Normal Bowel Sounds, Soft, No Tenderness Extremities: No Clubbing, No Cyanosis, No Edema Current Medications: Current Medications Sig/Michelle Start time Last Medication Dose Route Stop Time Status Admin Acetaminophen 325 MG Q6 PRN 01/23 1345 AC 01/23 PO 2134 Albuterol Sulfate 3 ML EVERY 4 HRS/AWAKE 01/24 2000 AC 01/26 INH 0829 Amlodipine Besylate 10 MG DAILY 01/24 1000 AC 01/26 PO 07 Atenolol 25 MG DAILY 01/24 1000 AC 01/26 PO 0724 Azithromycin 500 MG DAILY 01/24 1000 AC 01/26 Dextrose/Water 250 ML IV 0726 Divalproex Sodium 750 MG QPM 01/24 2200 AC 01/25 PO 2159 Duloxetine HCl 120 MG DAILY 01/24 1000 AC 01/26 PO 0724 Enoxaparin Sodium 40 MG DAILY 01/23 1333 AC SC Guaifenesin 10 ML Q4P PRN 01/24 1500 AC 01/25 PO 0801 Ipratropium [place] 2.5 ML EVERY 4 HRS/AWAKE 01/23 2000 AC 01/26 INH 0829 Lamotrigine 200 MG DAILY 01/24 1000 AC 01/26 PO 0724 Levothyroxine Sodium 0.15 MG DAILY AC 01/24 0700 AC 01/26 PO 0552 Losartan Potassium 25 MG DAILY 01/24 1000 AC 01/26 PO 0725 Methylprednisolone 40 MG Q12 01/25 1000 AC 01/26 IV 0726 Nicotine 14 MG DAILY 01/23 1538 AC 01/26 TOP 0725 Oxazepam 10 MG TIDPRN PRN 01/23 1400 AC 01/25 PO 01/30 1359 2201 Oxycodone/ 1 TAB Q6-PRN PRN 01/24 1045 AC 01/25 Acetaminophen PO 2159 Trazodone HCl 200 MG QPM 01/23 2200 AC 01/25 PO 2159 Last 24 Hrs of Lab/Piero Results Last 24 Hrs of Labs/Mics: Laboratory Tests 01/26/18 0755: Anion Gap 13, Estimated GFR > 60, BUN/Creatinine Ratio 30.0 H Assessment/Plan Assessment: Ms. Agustin is a 55-year-old female with a past medical history significant for nicotine dependence (6-8 cig/day x > 40 yrs), bipolar disorder, hypertension, bronchitis, chronic transaminitis and hypothyroidism with cough and SOB since Saturday evening. Problem list: COPD exacerbation Chronic transaminitis secondary to mental health medication use Plan: Continue IV Azithromycin, will discharge on po azithromycin Oxygen supplementation, maintain O2 > 92%. Sats dropped below 88%on mbulation. Will be discharged on home O2. TRC/nebs when necessary Steroids changed to PO. Will discharged on a short taper Continue home meds Smoke cessation counseling Diet: Heart healthy DVT prophylaxis: sc Enoxaparin Code: Full Problem List: 1. COPD exacerbation 2. Dyspnea Pain Ratin Pain Location: ear Pain Goal: Pain 4 or less Pain Plan: percocet Tomorrow's Labs & Rationales: na
[2018-01-26] MEDS ORDERED: PULMICORT0.5 MG/21 INH/SOL (11:31)
[2018-01-26] MEDS ORDERED: NICOTINE PATCH1 EAC2 TOP (11:33)
--- NOTE | 2018-01-27 07:15 | Discharge Summary ---
Hospital Course Allergies: Coded Allergies: NO KNOWN ALLERGIES (NONE 01/24/18) Discharge Instructions Medications at Discharge Discharge Medications: Continue taking these medications: Atenolol (Atenolol) 25 MG TABLET 1 Tablet ORAL DAILY Qty = 30 Comments: Last Taken: 01/26 Time: 07 Trazodone HCl (Trazodone HCl) 100 MG TABLET 2 Tablet ORAL Every night Qty = 60 Divalproex Sodium (Divalproex Sodium ER) 500 MG TAB.ER.24H 1 Tablet ORAL Every night Qty = 30 Comments: 750MG DOSE Lamotrigine (Lamotrigine) 200 MG TABLET 1 Tablet ORAL DAILY Qty = 30 Comments: Last Taken: 01/26 Time: 729 Oxazepam (Oxazepam) 10 MG CAPSULE 1 Tablet ORAL THREE TIMES A DAY NEEDED as needed for MENTAL HEALTH Qty = 90 Levothyroxine Sodium (Levothyroxine Sodium) 150 MCG TABLET 1 Tablet ORAL DAILY BEFORE BREAKFAST Qty = 90 Comments: Last Taken: 01/26 Time: 0600 Duloxetine HCl (Duloxetine HCl) 60 MG CAPSULE.DR 2 Capsule ORAL DAILY Qty = 60 Comments: Last Taken: 01/26 Time: 729 Amlodipine Besylate (Amlodipine Besylate) 10 MG TABLET 1 Tablet ORAL DAILY Qty = 30 Comments: Last Taken: 01/26 Time: 07 AM Divalproex Sodium (Divalproex Sodium ER) 250 MG TAB.ER.24H 1 Tablet ORAL Every night Qty = 30 Comments: 750MG DOSE Last Taken: 01/26 Time: 729 Losartan Potassium (Losartan Potassium) 25 MG TABLET 1 Tablet ORAL DAILY Qty = 30 Comments: Last Taken: 01/26 Time: 0730 Start taking the following new medications: Prednisone (Prednisone) 10 MG TABLET 1 Tablet ORAL SEE INSTRUCTIONS Qty = 20 No Refills Instructions: .Take 40 mg(4 tabs) 01/27 and 01/28 30 mg( 3 tabs) 01/29 and 01/30 20 mg (2 tabs) 01/31 and 02/01. 10 mg (1 tab) 02/02 and 02/03 Azithromycin (Azithromycin) 500 MG TABLET 1 Tablet ORAL DAILY Qty = 2 No Refills Instructions: .. Oxycodone HCl/Acetaminophen (Percocet 5-325 MG Tablet) 5 MG-325 MG TABLET 1 Tablet ORAL THREE TIMES DAILY as needed for earache Qty = 10 No Refills Instructions: . Budesonide (Pulmicort) 0.5 MG/2 ML AMPUL.NEB 1 Vial Inhale Solution TWICE DAILY Qty = 60 No Refills Nicotine (Nicotine Patch) 14 MG/24 HOUR PATCH.TD24 1 Patch On the skin DAILY Qty = 28 No Refills
== END 2018-01-26 14:15 | disposition home health service (06) | DRG 140 ==
LOC: ERH 09:50 → ERHI 13:05 → 2NA 13:05 → ENRESERV 13:42 → ENTRNSPT 14:09 → EDTRNSPT 14:21 → EDTRNSPTSTS 14:21 → 2NA 14:37 → CMPTRNSPT 14:51 → ENPENDDIS 01-26 11:41 → 2NA 01-26 14:15
PROVIDERS: Physician Assistant; Student in an Organized Health Care Education/Training Program
DX: J44.1 Chronic obstructive pulmonary disease with (acute) exacerbation (principal); J96.01 Acute respiratory failure with hypoxia; E87.1 Hypo-osmolality and hyponatremia; F31.9 Bipolar disorder, unspecified; I10 Essential (primary) hypertension; E03.9 Hypothyroidism, unspecified; R89.2 Abnormal level of other drugs, medicaments and biological substances in specimens from other organs, systems and tissues; T43.505A Adverse effect of unspecified antipsychotics and neuroleptics, initial encounter; F17.210 Nicotine dependence, cigarettes, uncomplicated; I25.2 Old myocardial infarction; I25.10 Atherosclerotic heart disease of native coronary artery without angina pectoris
CPT/HCPCS: 2NASP; 36592; 71046; 82436; 87040; 87070; 87804; 87804-59; 93005; 93010; J0456; J0696; J1650; J2920; J2930; J7060